=== PATIENT | male | born 1980 | race Caucasian/White ===

== ENCOUNTER 2016-10-02 11:37 | Emergency (ER) | payer SELFPAY ==
[~2016-10-02] VITALS: Ht 180.3 cm; Wt 72.6 kg
[2016-10-02] MEDS ORDERED: ONDANSETRON 4 MG TAB (S0181) PO ONE (14:00)
[2016-10-02] MEDS ORDERED: OXAZEPAM 15 MG CAP PO ONE (14:00)
[2016-10-02] MEDS ORDERED: ZOFR4TAB3 PO (14:53)
[2016-10-02] MEDS ORDERED: OXAZ30CA2 PO (14:53)
[2016-10-02 15:08] VITALS: BP 140/90
== END 2016-10-02 15:10 | disposition home or self-care (01) ==
LOC: EDBD 11:37 → M ED 13:34
DX: F10.20 Alcohol dependence, uncomplicated (principal); R11.2 Nausea with vomiting, unspecified; F17.200 Nicotine dependence, unspecified, uncomplicated; Z88.0 Allergy status to penicillin

== ENCOUNTER → 2017-03-28 | Outpatient (REF) | payer OTHER ==
[~2017-03-28] MED LIST: NITR100C2; OXAZ30CA2 PO; ZOFR4TAB3 PO
== END ==
LOC: M LAB REF 21:18
PROVIDERS: ATTEND Physician Assistant Medical
DX: R30.0 Dysuria (principal)

== ENCOUNTER 2017-04-01 14:33 | Emergency (ER) | payer OTHER ==
[~2017-04-01] VITALS: Ht 180.3 cm; Wt 71.6 kg
[2017-04-01 14:33] VITALS: BP 127/81
[~2017-04-01 14:33] MED LIST changes: -NITR100C2
[2017-04-01] MEDS ORDERED: NITR100C2 (14:43)
[2017-04-01 18:29] LABS: ALBUMIN 3.7 GM/DL (3.2-5.2); ALKALINE PHOSPHATASE 121 U/L (45-117); ALT/SGPT 138 U/L (12-78); ANION GAP 5 MEQ/L (8-16); AST/SGOT 63 U/L (15-37); BILIRUBIN,DIRECT 0.2 MG/DL (0.0-0.2); BILIRUBIN,TOTAL 0.5 MG/DL (0.2-1.0); BLOOD UREA NITROGEN 5 MG/DL (7-18); CALCIUM LEVEL 8.9 MG/DL (8.5-10.1); CARBON DIOXIDE LEVEL 30 MEQ/L (21-32); CHLORIDE LEVEL 106 MEQ/L (98-107); CREATININE FOR GFR 0.83 MG/DL (0.70-1.30); GLOMERULAR FILTRATION RATE > 60.0 (>60); GLUCOSE, FASTING 103 MG/DL (70-105); METHADONE URINE NEGATIVE (NEGATIVE); POTASSIUM SERUM 3.7 MEQ/L (3.5-5.1); SODIUM LEVEL 141 MEQ/L (136-145); TOTAL PROTEIN 7.4 GM/DL (6.4-8.2)
[2017-04-01 18:30] LABS: BASO % 0.7 % (0.0-1.0); EOS # 0.1 K/mm3 (0.0-0.50); EOS % 1.3 % (0.0-3.0); LARGE UNSTAINED CELL # 0.1 K/mm3 (0.0-0.4); LARGE UNSTAINED CELL % 1.5 % (0.0-4.0); LYMPH # 0.9 K/mm3 (1.5-4.5); LYMPH % 14.2 % (24.0-44.0); MEAN CORPUSCULAR HEMOGLOBIN 35.3 pg (27.0-33.0); MEAN CORPUSCULAR VOLUME 103.7 fl (80.0-96.0); MONO # 0.5 K/mm3 (0.0-0.8); MONO % 8.1 % (0.0-5.0); NEUTROPHILS # 4.6 K/mm3 (1.8-7.7); NEUTROPHILS % 74.2 % (36.0-66.0); PLATELET COUNT, AUTOMATED 237 k/mm3 (150-450); RED CELL DISTRIBUTION WIDTH 12.1 % (11.5-14.5); WHITE BLOOD COUNT 6.1 K/mm3 (4.0-10.0)
[2017-04-01 19:16] LABS: INR 0.99
== END 2017-04-01 19:25 | disposition home or self-care (01) ==
LOC: M ED 14:33
DX: R30.0 Dysuria (principal); F10.20 Alcohol dependence, uncomplicated; R10.32 Left lower quadrant pain; F32.9 Major depressive disorder, single episode, unspecified; Z88.0 Allergy status to penicillin; Z79.2 Long term (current) use of antibiotics

== ENCOUNTER 2018-10-27 14:01 | Emergency (ER) | payer MEDICAID, OTHER ==
[~2018-10-27] VITALS: Ht 182.9 cm; Wt 77.0 kg
[~2018-10-27 14:01] MED LIST changes: +NICO21PAT TD; +NITR100C2; +SERT-141 PO; +TRAZO50TA PO; +ZOFR4TAB14 PO; -ZOFR4TAB3 PO
[2018-10-27] MEDS ORDERED: DOXE25CA PO (14:10)
[2018-10-27] MEDS ORDERED: LORazepam 2 MG/ML VIAL (J2060) IV STA ×3 (14:23→15:46)
[2018-10-27] MEDS ORDERED: NS 1,000 ML IV ONE (14:30)
--- NOTE | 2018-10-27 14:43 | REP ---
Portable chest x-ray: Single view. History: Altered mental status. Comparison chest x-ray: January 17, 2009. Findings: The lungs are symmetrically aerated and clear. Pleural angles are sharp. Heart size is normal. Pulmonary vasculature is not increased. No bony abnormality is seen. Impression: Negative portable chest x-ray. Electronically Signed by Avi Martinez MD 10/27/2018 02:34 P
[2018-10-27 14:59] LABS: BASO % 0.5 % (0.0-1.0); EOS % 0.1 % (0.0-3.0); HEMATOCRIT 41.9 % (42.0-52.0); LYMPH # 1.6 10^3/uL (1.5-4.5); LYMPH % 21.4 % (24.0-44.0); MEAN CORPUSCULAR HEMOGLOBIN 33.4 pg (27.0-33.0); MEAN CORPUSCULAR HGB CONC 35.8 g/dl (32.0-36.5); MEAN CORPUSCULAR VOLUME 93.3 fl (80.0-96.0); MONO # 0.5 10^3/uL (0.0-0.8); MONO % 6.4 % (0.0-5.0); NEUTROPHILS # 5.3 10^3/uL (1.8-7.7); NEUTROPHILS % 71.3 % (36.0-66.0); PLATELET COUNT, AUTOMATED 260 10^3/uL (150-450); RED BLOOD COUNT 4.49 10^6/uL (4.30-6.10); WHITE BLOOD COUNT 7.4 10^3/uL (4.0-10.0)
--- NOTE | 2018-10-27 15:09 | ECGEPIP ---
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
[2018-10-27] MEDS ORDERED: MULTIVITAMIN -ADULT INJECTION 10 ML, THIAMINE INJection 100 MG, FOLIC ACID 1 MG in NS 1... IV ONE (15:15)
[2018-10-27] MEDS ORDERED: ONDANSETRON 4MG/2ML VIAL (J2405) As Ordered ONE (15:17)
[2018-10-27 15:22] LABS: ACETAMINOPHEN LEVEL < 2.0 UG/ML (10.0-30.0); ALBUMIN 4.1 GM/DL (3.2-5.2); ALT/SGPT 41 U/L (12-78); BILIRUBIN,DIRECT 0.2 MG/DL (0.0-0.2); BILIRUBIN,TOTAL 0.6 MG/DL (0.2-1.0); BLOOD UREA NITROGEN 6 MG/DL (7-18); CALCIUM LEVEL 8.5 MG/DL (8.5-10.1); CARBON DIOXIDE LEVEL 25 MEQ/L (21-32); CHLORIDE LEVEL 99 MEQ/L (98-107); CK-MB VALUE MASS < 1.0 NG/ML (<3.6); CPK CREATINE PHOSPHOKINASE 116 U/L (39-308); CREATININE FOR GFR 0.69 MG/DL (0.70-1.30); ETHYL ALCOHOL (ETHANOL) 0.052 % (0.000-0.010); GLOMERULAR FILTRATION RATE > 60.0 (>60); GLUCOSE, FASTING 97 MG/DL (70-100); MB/CK RELATIVE INDEX 0.86 (< OR =4); POTASSIUM SERUM 3.5 MEQ/L (3.5-5.1); SALICYLATE LEVEL 4.9 MG/DL (5.0-30.0); SODIUM LEVEL 135 MEQ/L (136-145); TOTAL PROTEIN 7.3 GM/DL (6.4-8.2); TROPONIN I < 0.02 NG/ML (< 0.10)
[2018-10-27] MEDS ORDERED: ONDANSETRON 4MG/2ML VIAL (J2405) IV ONE (15:30)
[2018-10-27 15:36] LABS: AMPHETAMINES LEVEL URINE NEGATIVE (NEGATIVE); BARBITURATES URINE NEGATIVE (NEGATIVE); BENZODIAZEPINES URINE NEGATIVE (NEGATIVE); CANNABINOIDS URINE NEGATIVE (NEGATIVE); COCAINE METABOLITE URINE NEGATIVE (NEGATIVE); METHADONE URINE NEGATIVE (NEGATIVE); OPIATES URINE NEGATIVE (NEGATIVE); PHENCYCLIDINE URINE NEGATIVE (NEGATIVE)
[2018-10-27] MEDS ORDERED: OXAZEPAM 15 MG CAP PO ONE (16:00)
[2018-10-27] MEDS ORDERED: OXAZ15CA4 PO (18:05)
[2018-10-27 20:06] VITALS: BP 139/86
== END 2018-10-27 20:09 | disposition home or self-care (01) ==
LOC: M ED 14:01
DX: F10.220 Alcohol dependence with intoxication, uncomplicated (principal); R00.0 Tachycardia, unspecified; G25.1 Drug-induced tremor; F41.9 Anxiety disorder, unspecified; F32.9 Major depressive disorder, single episode, unspecified; F17.200 Nicotine dependence, unspecified, uncomplicated; Z88.0 Allergy status to penicillin; Z79.899 Other long term (current) drug therapy
CPT/HCPCS: 71045; 80048; 80076; 80307; 81001; 82140; 82550; 82553; 83605; 84443; 85025; 93005; 93041; 94760; 96374; 96375; 96376; 99285; G0480; J2060; J2405; J3411

== ENCOUNTER 2019-01-10 13:09 | Emergency (ER) | payer OTHER ==
[~2019-01-10] VITALS: Ht 180.3 cm; Wt 74.8 kg
[~2019-01-10 13:09] MED LIST changes: +DOXE25CA PO; +OXAZ15CA4 PO; +TRAZ1TAB10 PO; -TRAZO50TA PO
[2019-01-10 13:10] VITALS: BP 122/76
[2019-01-10] MEDS ORDERED: ACAM0.05 PO (13:18)
[2019-01-10] MEDS ORDERED: VIVI380I (13:18)
== END 2019-01-10 15:56 | disposition left against medical advice (07) ==
LOC: M ED 13:09
DX: Z53.21 Procedure and treatment not carried out due to patient leaving prior to being seen by health care provider (principal)

== ENCOUNTER 2019-01-31 12:55 | Emergency (ER) | payer OTHER ==
[~2019-01-31] VITALS: Ht 182.9 cm; Wt 81.8 kg
[~2019-01-31 12:55] MED LIST changes: +ACAM0.05 PO; +VIVI380I
[2019-01-31] MEDS ORDERED: TRAZ-163 PO (13:12)
[2019-01-31] MEDS ORDERED: NS 1,000 ML IV ONE (13:30)
[2019-01-31 14:07] LABS: BASO % 0.7 % (0.0-1.0); HEMATOCRIT 46.2 % (42.0-52.0); HEMOGLOBIN 16.5 g/dl (13.5-17.5); LYMPH # 1.2 10^3/uL (1.5-4.5); LYMPH % 21.4 % (24.0-44.0); MEAN CORPUSCULAR HEMOGLOBIN 33.3 pg (27.0-33.0); MEAN CORPUSCULAR HGB CONC 35.7 g/dl (32.0-36.5); MEAN CORPUSCULAR VOLUME 93.1 fl (80.0-96.0); MONO # 0.3 10^3/uL (0.0-0.8); MONO % 5.3 % (0.0-5.0); NEUTROPHILS % 72.4 % (36.0-66.0); PLATELET COUNT, AUTOMATED 258 10^3/uL (150-450); RED BLOOD COUNT 4.96 10^6/uL (4.30-6.10); WHITE BLOOD COUNT 5.5 10^3/uL (4.0-10.0)
--- NOTE | 2019-01-31 14:09 | ECGEPIP ---
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
[2019-01-31 14:42] LABS: ACETAMINOPHEN LEVEL < 2.0 UG/ML (10.0-30.0); ALBUMIN 4.1 GM/DL (3.2-5.2); ALT/SGPT 72 U/L (12-78); BILIRUBIN,DIRECT 0.2 MG/DL (0.0-0.2); BILIRUBIN,TOTAL 0.4 MG/DL (0.2-1.0); BLOOD UREA NITROGEN 10 MG/DL (7-18); CALCIUM LEVEL 8.7 MG/DL (8.5-10.1); CARBON DIOXIDE LEVEL 29 MEQ/L (21-32); CHLORIDE LEVEL 103 MEQ/L (98-107); CPK CREATINE PHOSPHOKINASE 109 U/L (39-308); CREATININE FOR GFR 0.78 MG/DL (0.70-1.30); ETHYL ALCOHOL (ETHANOL) 0.168 % (0.000-0.010); GLOMERULAR FILTRATION RATE > 60.0 (>60); GLUCOSE, FASTING 102 MG/DL (70-100); POTASSIUM SERUM 3.6 MEQ/L (3.5-5.1); SALICYLATE LEVEL 3.6 MG/DL (5.0-30.0); SODIUM LEVEL 142 MEQ/L (136-145); TOTAL PROTEIN 7.6 GM/DL (6.4-8.2)
[2019-01-31] MEDS ORDERED: hydrOXYzine 25 MG TAB PO STA (14:47)
[2019-01-31 15:25] LABS: AMPHETAMINES LEVEL URINE NEGATIVE (NEGATIVE); BARBITURATES URINE NEGATIVE (NEGATIVE); BENZODIAZEPINES URINE NEGATIVE (NEGATIVE); CANNABINOIDS URINE NEGATIVE (NEGATIVE); COCAINE METABOLITE URINE NEGATIVE (NEGATIVE); METHADONE URINE NEGATIVE (NEGATIVE); OPIATES URINE NEGATIVE (NEGATIVE); PHENCYCLIDINE URINE NEGATIVE (NEGATIVE)
[2019-01-31 16:39] LABS: AMORPHOUS SEDIMENT SMALL (NEGATIVE); APPEARANCE, URINE CLOUDY (CLEAR); BACTERIA, URINE AUTO NEGATIVE (NEGATIVE); BILIRUBIN, URINE AUTO 1+ (NEGATIVE); BLOOD, URINE BLOOD NEGATIVE (NEGATIVE); COLOR, URINE AMBER (YELLOW); GLUCOSE, URINE (UA) AUTO NEGATIVE (NEGATIVE); KETONE, URINE AUTO TRACE mg/dL (NEGATIVE); LEUKOCYTE ESTERASE, URINE AUTO NEGATIVE (NEGATIVE); MUCUS, URINE MODERATE (NEGATIVE); NITRITE, URINE AUTO NEGATIVE (NEGATIVE); PROTEIN, URINE AUTO 2+ mg/dL (NEGATIVE); RBC, URINE AUTO 1 /HPF (0-3); SPECIFIC GRAVITY URINE AUTO 1.027 (1.002-1.035); SQUAMOUS EPITHELIAL CELL UR AU 0 /HPF (0-6); WBC, URINE AUTO 0 /HPF (0-3)
[2019-01-31 17:01] VITALS: BP 155/103
== END 2019-01-31 17:05 | disposition home or self-care (01) ==
LOC: M ED 12:55
DX: F10.129 Alcohol abuse with intoxication, unspecified (principal); Y90.0 Blood alcohol level of less than 20 mg/100 ml; F33.9 Major depressive disorder, recurrent, unspecified; Z88.0 Allergy status to penicillin; F17.210 Nicotine dependence, cigarettes, uncomplicated
CPT/HCPCS: 80048; 80076; 80307; 81001; 82550; 83735; 84443; 85025; 93005; 93041; 94760; 96360; 99284; G0480